=== PATIENT | female | born 1960 | race African-American/Black ===

== ENCOUNTER 2023-09-20 12:53 | Emergency (ER) | payer MEDICAID, OTHER ==
[~2023-09-20] VITALS: Ht 167.6 cm; Wt 90.0 kg
[2023-09-20 12:56] VITALS: O2SAT 95
[2023-09-20 14:05] LABS: EOSINOPHILS % 3.5 % (0.0-5.0); HEMATOCRIT. 38.3 % (36.0-48.0); HEMOGLOBIN. 12.2 g/dL (12.0-16.0); LYMPHOCYTES % 25.4 % (20.0-50.0); MEAN CORPUSCULAR HEMOGLOBIN 28.9 pg (28.0-32.0); MEAN CORPUSCULAR HGB CONC 31.8 g/dL (31.0-37.0); MEAN CORPUSCULAR VOLUME 90.7 fL (81.0-99.0); MEAN PLATELET VOLUME 9.1 fl (7.4-10.4); MONOCYTES % 12.5 % (2.0-8.0); NEUTROPHILS % 57.6 % (40.0-76.0); PLATELET 175 x1000/uL (130-400); RED BLOOD CELL COUNT 4.23 mill/uL (4.2-5.4); RED CELL DISTRIBUTION WIDTH 15.4 % (11.6-14.6); WHITE BLOOD COUNT 4.4 x1000/uL (4.5-11.0)
[2023-09-20 14:16] LABS: CARBON DIOXIDE 25 mEq/L (21-32); CHLORIDE 106 mEq/L (98-107); POTASSIUM 4.7 mEq/L (3.5-5.1); SODIUM 137 mEq/L (136-145)
[2023-09-20 14:17] LABS: CALCIUM 9.8 mg/dL (8.7-10.4)
[2023-09-20 14:21] LABS: CREATININE 0.8 mg/dL (0.6-1.0)
[2023-09-20 14:22] LABS: GLUCOSE 97 mg/dL (70-105); UREA NITROGEN BLOOD 13 mg/dL (9-23)
[2023-09-20 14:24] LABS: TROPONIN I HIGH SENSITIVITY 12 ng/L (3.0-34)
[2023-09-20 16:43] VITALS: BP 103/80; PULSE 88; RESP 19; TEMP 98.7
== END 2023-09-20 16:44 | disposition short-term general hospital (02) ==
LOC: ER 12:53 → CANBEDREQ 09-22 02:37
DX: I24.9 Acute ischemic heart disease, unspecified (principal); J44.9 Chronic obstructive pulmonary disease, unspecified; E78.00 Pure hypercholesterolemia, unspecified; F20.9 Schizophrenia, unspecified; F17.210 Nicotine dependence, cigarettes, uncomplicated
CPT/HCPCS: 80048; 83880; 85025; 84484; 36415; 71045; 93005; 99291; 99406; Z7610 ×2

== ENCOUNTER 2023-10-03 06:26 | Emergency (ER) | payer OTHER ==
[~2023-10-03] VITALS: Ht 165.1 cm; Wt 73.0 kg
[2023-10-03] MEDS ORDERED: LEVOFLOXACIN 750MG PREMIX 150 ML IV ONE (06:30)
[2023-10-03 06:56] LABS: BG CARBOXYHEMOGLOBIN 1.8 % (0.5-1.5); BG DEOXYHEMOGLOBIN 6.7 % (0.0-5.0); BG FRACTION INSPIRED OXYGEN 21; BG HCO3 ACT 24.1 mmol/L (22.0-26.0); BG METHEMOGLOBIN 0.1 % (0.0-1.5); BG OXYGEN SATURATION 93.2 % (92.0-98.5); BG OXYHEMOGLOBIN 91.4 % (94.0-97.0); BG PCO2 33.8 mmHg (35.0-45.0); BG PH 7.471 (7.350-7.450); BG PO2 67.1 mmHg (75.0-100.0); BG SAMPLE SITE LEFT RADIAL; BG TOTAL HEMOGLOBIN 13.2 g/dL (12.0-18.0); BG VENT MODE ROOM AIR
[2023-10-03] MEDS: ALBUTEROL (0.083%) 2.5MG/3ML NEB HHN STA (07:04)
[2023-10-03 07:05] VITALS: PULSE 92; RESP 18; O2SAT 96
[2023-10-03] MEDS: MAGNESIUM 2 G PREMIX 50 ML IV STA (07:05)
[2023-10-03] MEDS: METHYLPREDNISOLONE SOD SUCC 125MG/2ML (ACT-O-VIAL) IV STA (07:05)
[2023-10-03] MEDS: IPRATROPIUM BROMIDE (0.02%) 0.5MG/2.5ML NEB HHN STA (07:05)
[2023-10-03 07:07] LABS: BASOPHILS % 0.7 % (0.0-2.0); EOSINOPHILS % 7.2 % (0.0-5.0); HEMATOCRIT. 37.8 % (36.0-48.0); HEMOGLOBIN. 12.3 g/dL (12.0-16.0); LYMPHOCYTES % 23.3 % (20.0-50.0); MEAN CORPUSCULAR HEMOGLOBIN 29.5 pg (28.0-32.0); MEAN CORPUSCULAR HGB CONC 32.6 g/dL (31.0-37.0); MEAN CORPUSCULAR VOLUME 90.3 fL (81.0-99.0); MEAN PLATELET VOLUME 8.6 fl (7.4-10.4); MONOCYTES % 10.7 % (2.0-8.0); NEUTROPHILS % 58.1 % (40.0-76.0); PLATELET 168 x1000/uL (130-400); RED BLOOD CELL COUNT 4.19 mill/uL (4.2-5.4); RED CELL DISTRIBUTION WIDTH 16.2 % (11.6-14.6); WHITE BLOOD COUNT 5.6 x1000/uL (4.5-11.0)
[2023-10-03 07:18] LABS: CHLORIDE 101 mEq/L (98-107); POTASSIUM 3.8 mEq/L (3.5-5.1); SODIUM 138 mEq/L (136-145)
[2023-10-03 07:19] LABS: CARBON DIOXIDE 28 mEq/L (21-32)
[2023-10-03 07:20] LABS: CALCIUM 9.5 mg/dL (8.7-10.4)
[2023-10-03 07:24] LABS: CREATININE 0.9 mg/dL (0.6-1.0); GLUCOSE 102 mg/dL (70-105)
[2023-10-03 07:25] LABS: TROPONIN I HIGH SENSITIVITY 31 ng/L (3.0-34); UREA NITROGEN BLOOD 17 mg/dL (9-23)
[2023-10-03 09:32] VITALS: BP 135/80; PULSE 67; RESP 15; TEMP 98.7
== END 2023-10-03 09:39 | disposition short-term general hospital (02) ==
LOC: ER 06:26 → EDBEDREQ 07:50 → ER 09:39 → CANBEDREQ 10-05 21:59
DX: R06.02 Shortness of breath (principal); J44.9 Chronic obstructive pulmonary disease, unspecified; E78.00 Pure hypercholesterolemia, unspecified; F20.9 Schizophrenia, unspecified
CPT/HCPCS: 80048; 83880; 85025; 84484; 36415; 71045; 82805; 82375; 93005; 94644; 96374; 99285; 36600; J3475; J2919; Z7610; 94640

== ENCOUNTER 2023-10-11 21:56 | Emergency (ER) | payer OTHER ==
[~2023-10-11] VITALS: Ht 162.6 cm; Wt 91.0 kg
[2023-10-11 22:01] VITALS: BP 118/90; TEMP 98.4
[2023-10-11] MEDS: PREDNISONE 20MG TABLET PO STA (22:11)
[2023-10-11 22:25] VITALS: PULSE 88; RESP 20; O2SAT 95
[2023-10-11] MEDS: IPRATROPIUM BROMIDE (0.02%) 0.5MG/2.5ML NEB HHN STA (22:25)
[2023-10-11] MEDS: ALBUTEROL (0.083%) 2.5MG/3ML NEB HHN STA (22:25)
[2023-10-11] MEDS ORDERED: MENT5LOZ MM (22:50)
[2023-10-11] MEDS: BENZONATATE 100MG CAPSULE PO ONE (23:00)
== END 2023-10-11 23:37 | disposition home or self-care (01) ==
LOC: ER 22:07
DX: R05.9 Cough, unspecified (principal); J44.9 Chronic obstructive pulmonary disease, unspecified; E78.00 Pure hypercholesterolemia, unspecified
CPT/HCPCS: 71045; 94644; 99285; J7512; Z7610 ×3

== ENCOUNTER 2023-12-24 09:48 | Inpatient (IN) | payer MEDICAID, OTHER ==
[~2023-12-24] VITALS: Ht 167.6 cm; Wt 82.6 kg
[~2023-12-24 09:48] MED LIST: FURO-152 MT; MENT5LOZ MM; TRAZ-252 MT
[2023-12-24] MEDS: METHYLPREDNISOLONE SOD SUCC 125MG/2ML (ACT-O-VIAL) IV STA (10:16)
[2023-12-24] MEDS: FUROSEMIDE 40MG/4ML VIAL IVP ONE (10:17)
[2023-12-24] MEDS: MAGNESIUM 2 G PREMIX 50 ML IV ONE (10:22)
[2023-12-24 10:27] LABS: BASOPHILS % 0.8 % (0.0-2.0); EOSINOPHILS % 0.9 % (0.0-5.0); HEMATOCRIT. 38.5 % (36.0-48.0); HEMOGLOBIN. 12.1 g/dL (12.0-16.0); LYMPHOCYTES % 33.2 % (20.0-50.0); MEAN CORPUSCULAR HGB CONC 31.4 g/dL (31.0-37.0); MEAN CORPUSCULAR VOLUME 82.9 fL (81.0-99.0); MEAN PLATELET VOLUME 8.8 fl (7.4-10.4); MONOCYTES % 13.9 % (2.0-8.0); NEUTROPHILS % 51.2 % (40.0-76.0); PLATELET 210 x1000/uL (130-400); RED BLOOD CELL COUNT 4.64 mill/uL (4.2-5.4); RED CELL DISTRIBUTION WIDTH 18.5 % (11.6-14.6); WHITE BLOOD COUNT 5.3 x1000/uL (4.5-11.0)
[2023-12-24 10:40] VITALS: PULSE 120; RESP 25; O2SAT 90
[2023-12-24] MEDS: IPRATROPIUM BROMIDE (0.02%) 0.5MG/2.5ML NEB HHN STA (10:43)
[2023-12-24] MEDS: ALBUTEROL (0.083%) 2.5MG/3ML NEB HHN SCH (10:43)
[2023-12-24 11:13] LABS: CARBON DIOXIDE 19 mEq/L (21-32); CHLORIDE 104 mEq/L (98-107); POTASSIUM 3.3 mEq/L (3.5-5.1); SODIUM 138 mEq/L (136-145)
[2023-12-24 11:14] LABS: CALCIUM 9.1 mg/dL (8.7-10.4)
[2023-12-24 11:19] LABS: GLUCOSE 112 mg/dL (70-105); UREA NITROGEN BLOOD 12 mg/dL (9-23)
[2023-12-24 11:20] LABS: TROPONIN I HIGH SENSITIVITY 17 ng/L (3.0-34)
[2023-12-24] MEDS: POTASSIUM CHLORIDE 20MEQ/PACKET PO ONE (11:50)
[2023-12-25] VITALS (8 sets, daily range): BP systolic 105–118; BP diastolic 72–88; PULSE 53–115; RESP 18–25; TEMP 35.78064–36.6696; O2SAT 94–100
[2023-12-25] MEDS: FUROSEMIDE 20MG TABLET PO SCH (08:38)
[2023-12-25] MEDS ORDERED: DIPHENHYDRAMINE 50MG/ML VIAL IV PRN (09:15)
[2023-12-25] MEDS ORDERED: ACETAMINOPHEN 325MG TABLET PO PRN (09:15)
[2023-12-25] MEDS ORDERED: ONDANSETRON HCL 4MG/2ML INJ IV PRN (09:15)
[2023-12-25] MEDS ORDERED: CLONIDINE 0.1MG TABLET PO PRN (09:15)
[2023-12-25] MEDS ORDERED: AZITHROMYCIN 500 MG in DEXT 5% WATER 250 ML IV SCH (09:15)
[2023-12-25] MEDS: METHYLPREDNISOLONE SOD SUCC 40MG/ML (ACT-O-VIAL) IV SCH (10:48)
[2023-12-25] MEDS: CEFTRIAXONE 1GM/50ML 50 ML IV SCH (10:48)
[2023-12-25] MEDS: IPRATROPIUM/ALBUTEROL 0.5-3(2.5)MG/3ML NEB HHN PRN (13:21)
[2023-12-25] MEDS: ENOXAPARIN 40MG/0.4ML SYR SUBCUT SCH (15:00)
[2023-12-25] MEDS: IPRATROPIUM/ALBUTEROL 0.5-3(2.5)MG/3ML NEB HHN SCH (18:35)
[2023-12-26] VITALS (7 sets, daily range): BP systolic 90–111; BP diastolic 56–85; PULSE 79–106; RESP 18–22; TEMP 35.72508–37.2252; O2SAT 88–100
[2023-12-26 16:20] LABS: HEMATOCRIT. 38.4 % (36.0-48.0); HEMOGLOBIN. 11.9 g/dL (12.0-16.0); MEAN CORPUSCULAR HEMOGLOBIN 25.8 pg (28.0-32.0); MEAN CORPUSCULAR HGB CONC 31.1 g/dL (31.0-37.0); MEAN PLATELET VOLUME 9.5 fl (7.4-10.4); PLATELET 189 x1000/uL (130-400); RED BLOOD CELL COUNT 4.62 mill/uL (4.2-5.4); RED CELL DISTRIBUTION WIDTH 18.7 % (11.6-14.6); WHITE BLOOD COUNT 6.4 x1000/uL (4.5-11.0)
[2023-12-26 16:21] LABS: DIFFERENTIAL COMMENT 1
[2023-12-26 16:24] LABS: CHLORIDE 102 mEq/L (98-107); POTASSIUM 4.9 mEq/L (3.5-5.1); SODIUM 137 mEq/L (136-145)
[2023-12-26 16:25] LABS: CARBON DIOXIDE 23 mEq/L (21-32)
[2023-12-26 16:26] LABS: CALCIUM 10.2 mg/dL (8.7-10.4)
[2023-12-26 16:30] LABS: GLUCOSE 108 mg/dL (70-105); UREA NITROGEN BLOOD 26 mg/dL (9-23)
[2023-12-26 16:54] LABS: HYPOCHROMASIA 1+; NUCLEATED RED BLOOD CELLS 2 /100 WBC; PLATELET ESTIMATE NORMAL; TARGET CELLS 1+
[2023-12-26] MEDS: METHYLPREDNISOLONE SOD SUCC 40MG/ML (ACT-O-VIAL) IV SCH (21:00)
[2023-12-27] VITALS (9 sets, daily range): BP systolic 100–123; BP diastolic 62–83; PULSE 80–113; RESP 18–24; TEMP 35.94732–36.6696; O2SAT 94–98
[2023-12-27 07:22] LABS: CARBON DIOXIDE 24 mEq/L (21-32); CHLORIDE 104 mEq/L (98-107); POTASSIUM 4.6 mEq/L (3.5-5.1); SODIUM 138 mEq/L (136-145)
[2023-12-27 07:23] LABS: CALCIUM 10.1 mg/dL (8.7-10.4)
[2023-12-27 07:28] LABS: CREATININE 0.9 mg/dL (0.6-1.0); GLUCOSE 84 mg/dL (70-105); UREA NITROGEN BLOOD 29 mg/dL (9-23)
[2023-12-27 07:57] LABS: BASOPHILS % 0.1 % (0.0-2.0); HEMATOCRIT. 37.3 % (36.0-48.0); HEMOGLOBIN. 11.6 g/dL (12.0-16.0); LYMPHOCYTES % 15.6 % (20.0-50.0); MEAN CORPUSCULAR HEMOGLOBIN 25.8 pg (28.0-32.0); MEAN CORPUSCULAR HGB CONC 31.2 g/dL (31.0-37.0); MEAN CORPUSCULAR VOLUME 82.6 fL (81.0-99.0); MEAN PLATELET VOLUME 9.5 fl (7.4-10.4); MONOCYTES % 13.3 % (2.0-8.0); PLATELET 180 x1000/uL (130-400); RED BLOOD CELL COUNT 4.52 mill/uL (4.2-5.4); RED CELL DISTRIBUTION WIDTH 18.9 % (11.6-14.6); WHITE BLOOD COUNT 7.3 x1000/uL (4.5-11.0)
[2023-12-27] MEDS: GUAIFENESIN 200MG/10ML SUGAR FREE UDC PO PRN (13:56)
[2023-12-27] MEDS ORDERED: METHYLPREDNISOLONE 4MG TABLET PO SCH (21:00)
[2023-12-27] MEDS: PREDNISONE 10MG TABLET PO SCH (22:00)
[2023-12-28 02:30] VITALS: PULSE 99; RESP 18
[2023-12-28] MEDS: PREDNISONE 20MG TABLET PO SCH (06:44)
[2023-12-28 08:00] VITALS: BP 111/75; PULSE 95; RESP 18; TEMP 35.94732; O2SAT 96
[2023-12-28 08:42] VITALS: PULSE 96; RESP 18; O2SAT 98
[2023-12-28 12:00] VITALS: BP 101/61; PULSE 90; RESP 20; TEMP 36.05844; O2SAT 95
[2023-12-28 16:00] VITALS: BP 115/82; PULSE 71; RESP 20; TEMP 36.05844; O2SAT 100
[2023-12-28 20:00] VITALS: BP 114/86; PULSE 82; RESP 18; TEMP 36.00288; O2SAT 96
[2023-12-29] VITALS (7 sets, daily range): BP systolic 114–135; BP diastolic 67–89; PULSE 66–101; RESP 18–24; TEMP 35.89176–37.00296; O2SAT 98–100
[2023-12-29] MEDS: PREDNISONE 20MG TABLET PO NR (22:46)
[2023-12-29] MEDS ORDERED: HYDROCODONE/ACETAMINOPHEN 5/325MG TABLET PO PRN (23:45)
[2023-12-29] MEDS ORDERED: NALOXONE HCL 0.4MG/ML VIAL IV PRN (23:45)
[2023-12-30] VITALS (7 sets, daily range): BP systolic 96–117; BP diastolic 74–90; PULSE 65–113; RESP 16–20; TEMP 36.114–36.55848; O2SAT 96–100
[2023-12-30] MEDS: PREDNISONE 20MG TABLET PO SCH ×2 (06:00→16:57)
[2023-12-30 09:24] LABS: BG BASE EXCESS -5.1 mmol/L (-2.0-3.0); BG CARBOXYHEMOGLOBIN 1.2 % (0.5-1.5); BG DEOXYHEMOGLOBIN 6.1 % (0.0-5.0); BG FRACTION INSPIRED OXYGEN 21; BG HCO3 ACT 17.9 mmol/L (21.0-28.0); BG METHEMOGLOBIN 0.1 % (0.5-1.5); BG OXYGEN SATURATION 93.8 % (94.0-98.0); BG OXYHEMOGLOBIN 92.6 % (94.0-98.0); BG PCO2 27.9 mmHg (32.0-45.0); BG PH 7.425 (7.350-7.450); BG PO2 73.7 mmHg (83.0-108.0); BG SAMPLE SITE RIGHT BRACHIAL; BG TOTAL HEMOGLOBIN 13.1 g/dL (12.0-16.0); BG VENT MODE ROOM AIR
[2023-12-31] VITALS: BP 109/83; PULSE 67; RESP 16; TEMP 36.114; O2SAT 100
[2023-12-31 02:08] VITALS: PULSE 78; RESP 20; O2SAT 96
[2023-12-31 04:00] VITALS: BP 115/89; PULSE 67; RESP 18; TEMP 36.114; O2SAT 98
[2023-12-31 08:00] VITALS: BP 126/81; PULSE 65; RESP 18; TEMP 35.2806; O2SAT 100
[2023-12-31 16:00] VITALS: BP 116/89; PULSE 64; RESP 18; TEMP 35.72508; O2SAT 96
[2023-12-31] MEDS: LORAZEPAM 0.5MG TABLET PO PRN (17:48)
[2023-12-31 20:00] VITALS: BP 115/86; PULSE 98; RESP 18; TEMP 35.66952; O2SAT 97
[2024-01-01] VITALS: BP 116/81; PULSE 104; RESP 19; TEMP 35.94732; O2SAT 97
[2024-01-01] MEDS ORDERED: DIPHENHYDRAMINE 25MG CAPSULE PO PRN (08:45)
[2024-01-01] MEDS ORDERED: FAMO20TA8 MT (10:01)
[2024-01-01] MEDS ORDERED: PRED10TA MT (10:01)
[2024-01-01 12:00] VITALS: BP 111/77; PULSE 84; RESP 18; TEMP 36.50292; O2SAT 97
[2024-01-01 16:00] VITALS: BP 117/87; PULSE 79; RESP 18; TEMP 36.61404; O2SAT 100
[2024-01-01 20:00] VITALS: BP 115/66; PULSE 82; RESP 19; TEMP 36.33624; O2SAT 99
[2024-01-02] VITALS: BP 115/85; PULSE 61; RESP 18; TEMP 36.55848; O2SAT 98
[2024-01-02 02:28] VITALS: BP 115/61; PULSE 61; TEMP 97.8
== END 2024-01-02 02:05 | disposition left against medical advice (07) | DRG 140 ==
LOC: ER 09:48 → 5WST 11:30 → EDBEDREQ 11:36 → EDBEDREQTM 11:36 → EDBEDREQSVC 15:43 → 8WST 12-25 00:58
PROVIDERS: ADMIT Internal Medicine; ATTEND Internal Medicine
PROC: 5A09357 Assistance with Respiratory Ventilation, Less than 24 Consecutive Hours, Continuous Positive Airway Pressure (ICD-10-PCS; principal; 2023-12-24)
PROC: 5A0935A Assistance with Respiratory Ventilation, Less than 24 Consecutive Hours, High Flow/Velocity Cannula (ICD-10-PCS; 2023-12-24)
DX: J44.0 Chronic obstructive pulmonary disease with (acute) lower respiratory infection (principal); J96.01 Acute respiratory failure with hypoxia; I11.0 Hypertensive heart disease with heart failure; J18.9 Pneumonia, unspecified organism; I50.9 Heart failure, unspecified; J44.1 Chronic obstructive pulmonary disease with (acute) exacerbation; J96.02 Acute respiratory failure with hypercapnia; E78.5 Hyperlipidemia, unspecified; E87.6 Hypokalemia; Z53.29 Procedure and treatment not carried out because of patient's decision for other reasons
CPT/HCPCS: 36415; 36600; 71045; 76604; 80048; 82375; 82805; 84145; 84484; 85025; 93005; 93880; 94640; 99291; J0696; J1650; J1940; J2919; J2920; J3475; J7512; Q0163

== ENCOUNTER 2024-01-08 05:52 | Emergency (ER) | payer MEDICAID, OTHER ==
[~2024-01-08] VITALS: Ht 165.1 cm; Wt 73.0 kg
[~2024-01-08 05:52] MED LIST changes: +FAMO20TA8 MT; +PRED10TA MT
[2024-01-08 05:54] VITALS: TEMP 98.8; O2SAT 100
[2024-01-08 08:00] VITALS: O2SAT 90
[2024-01-08 08:13] VITALS: BP 112/91; PULSE 108; RESP 18
[2024-01-08] MEDS: MORPHINE SULFATE 4 MG/ML INJ (FOR IV/IM USE) IV ONE (08:13)
[2024-01-08] MEDS: ONDANSETRON HCL 4MG/2ML INJ IV ONE (08:13)
[2024-01-08] MEDS: ASPIRIN 325MG EC TABLET PO ONE (08:14)
[2024-01-08 09:16] LABS: BASOPHILS % 0.3 % (0.0-2.0); EOSINOPHILS % 0.7 % (0.0-5.0); HEMATOCRIT. 38.9 % (36.0-48.0); HEMOGLOBIN. 12.1 g/dL (12.0-16.0); LYMPHOCYTES % 11.1 % (20.0-50.0); MEAN CORPUSCULAR HEMOGLOBIN 25.1 pg (28.0-32.0); MEAN CORPUSCULAR HGB CONC 31.1 g/dL (31.0-37.0); MEAN CORPUSCULAR VOLUME 80.7 fL (81.0-99.0); MONOCYTES % 8.4 % (2.0-8.0); NEUTROPHILS % 79.5 % (40.0-76.0); PLATELET 88 x1000/uL (130-400); RED BLOOD CELL COUNT 4.82 mill/uL (4.2-5.4); RED CELL DISTRIBUTION WIDTH 20.3 % (11.6-14.6); WHITE BLOOD COUNT 9.6 x1000/uL (4.5-11.0)
[2024-01-08 09:23] LABS: CHLORIDE 99 mEq/L (98-107); POTASSIUM 4.3 mEq/L (3.5-5.1); SODIUM 132 mEq/L (136-145)
[2024-01-08 09:24] LABS: CALCIUM 8.8 mg/dL (8.7-10.4); CARBON DIOXIDE 29 mEq/L (21-32)
[2024-01-08 09:29] LABS: CREATININE 0.9 mg/dL (0.6-1.0); GLUCOSE 110 mg/dL (70-105); UREA NITROGEN BLOOD 14 mg/dL (9-23)
[2024-01-08 09:32] LABS: TROPONIN I HIGH SENSITIVITY 24 ng/L (3.0-34)
== END 2024-01-08 13:24 | disposition short-term general hospital (02) ==
LOC: ER 06:06
DX: I50.9 Heart failure, unspecified (principal); E78.00 Pure hypercholesterolemia, unspecified; J44.9 Chronic obstructive pulmonary disease, unspecified; Z79.899 Other long term (current) drug therapy
CPT/HCPCS: 80048; 83880; 85025; 84484; 36415; 71045; 93005; 96374; 96375; 99285; J2405; J2270; Z7610

== ENCOUNTER 2024-01-26 11:38 | Inpatient (IN) | payer MEDICAID ==
[~2024-01-26] VITALS: Ht 162.6 cm; Wt 100.7 kg
[2024-01-26 11:40] VITALS: O2SAT 100
[2024-01-26] MEDS: METHYLPREDNISOLONE SOD SUCC 125MG/2ML (ACT-O-VIAL) IV STA (12:39)
[2024-01-26 12:43] LABS: HEMOGLOBIN. 11.5 g/dL (12.0-16.0); MEAN CORPUSCULAR HEMOGLOBIN 25.4 pg (28.0-32.0); MEAN CORPUSCULAR HGB CONC 31.9 g/dL (31.0-37.0); MEAN CORPUSCULAR VOLUME 79.5 fL (81.0-99.0); PLATELET 318 x1000/uL (130-400); RED BLOOD CELL COUNT 4.52 mill/uL (4.2-5.4); RED CELL DISTRIBUTION WIDTH 21.5 % (11.6-14.6)
[2024-01-26 12:45] LABS: DIFFERENTIAL COMMENT 1
[2024-01-26] MEDS: LEVOFLOXACIN 750MG PREMIX 150 ML IV ONE (12:45)
[2024-01-26] MEDS: DIPHENHYDRAMINE 50MG/ML VIAL IV ONE (12:45)
[2024-01-26] MEDS ORDERED: PERMETHRIN 5% CREAM 60GM TOP ONE (12:45)
[2024-01-26 12:51] LABS: CHLORIDE 97 mEq/L (98-107); POTASSIUM 3.1 mEq/L (3.5-5.1); SODIUM 133 mEq/L (136-145)
[2024-01-26 12:52] LABS: CALCIUM 8.8 mg/dL (8.7-10.4); CARBON DIOXIDE 30 mEq/L (21-32)
[2024-01-26 12:57] LABS: CREATININE 0.9 mg/dL (0.6-1.0); GLUCOSE 69 mg/dL (70-105); UREA NITROGEN BLOOD 12 mg/dL (9-23)
[2024-01-26 12:58] LABS: D-DIMER 3.11 mg/L FEU (<0.50); INR 1.4; PROTHROMBIN TIME 14.9 sec (9.6-11.0); TROPONIN I HIGH SENSITIVITY 15 ng/L (3.0-34)
[2024-01-26] MEDS: POTASSIUM CHLORIDE 20MEQ TABLET SR PO NR (13:00)
[2024-01-26 13:35] VITALS: PULSE 100; RESP 22
[2024-01-26] MEDS: ALBUTEROL (0.083%) 2.5MG/3ML NEB HHN STA (13:35)
[2024-01-26] MEDS: IPRATROPIUM BROMIDE (0.02%) 0.5MG/2.5ML NEB HHN STA (13:35)
[2024-01-26] MEDS ORDERED: HYDROCODONE/ACETAMINOPHEN 10/325MG TABLET PO ONE (13:45)
[2024-01-26] MEDS ORDERED: PREDNISONE 20MG TABLET PO ONE (13:45)
[2024-01-26] MEDS ORDERED: MORPHINE SULFATE 4 MG/ML INJ (FOR IV/IM USE) IV ONE (13:45)
[2024-01-26 14:15] LABS: ANISOCYTOSIS 3+; MICROCYTOSIS 1+; NUCLEATED RED BLOOD CELLS 1 /100 WBC; OVALOCYTES 1+; PLATELET ESTIMATE NORMAL; TARGET CELLS 1+
[2024-01-26] MEDS ORDERED: FUROSEMIDE 40MG/4ML VIAL IVP NR (15:00)
[2024-01-26] MEDS ORDERED: KCL 20MEQ/100ML PREMIX 100 ML IV NR (15:00)
[2024-01-26] MEDS ORDERED: DOXYCYCLINE 100MG/100ML 100 ML IV SCH (15:15)
[2024-01-26 15:23] LABS: TROPONIN I HIGH SENSITIVITY 15 ng/L (3.0-34)
[2024-01-26] MEDS ORDERED: IOHEXOL-350 100 ML BOTTLE ONE (19:37)
[2024-01-26 20:00] VITALS: BP 118/68; PULSE 75; RESP 16; TEMP 36.50292
[2024-01-26] MEDS: HYDROCODONE/ACETAMINOPHEN 10/325MG TABLET PO NR (20:29)
[2024-01-26] MEDS: ENOXAPARIN 100MG/ML SYR SUBCUT NR (20:30)
[2024-01-26 22:33] VITALS: BP 116/91; PULSE 107; RESP 18; TEMP 36.55848; O2SAT 98
[2024-01-27] VITALS: BP 105/64; PULSE 74; RESP 18; TEMP 36.78072; TEMP 36.8072; O2SAT 97
[2024-01-27] MEDS ORDERED: NALOXONE HCL 0.4MG/ML VIAL IV PRN (00:15)
[2024-01-27 03:05] LABS: TROPONIN I HIGH SENSITIVITY 9 ng/L (3.0-34)
[2024-01-27 04:00] VITALS: BP 118/68; PULSE 76; RESP 19; TEMP 36.89184; O2SAT 98
[2024-01-27 08:16] VITALS: BP 116/86; PULSE 107; RESP 20; TEMP 36.28068; O2SAT 98
[2024-01-27] MEDS: ENOXAPARIN 100MG/ML SYR SUBCUT SCH (08:57)
[2024-01-27] MEDS ORDERED: ENOXAPARIN 100MG/ML SYR SUBCUT SCH (09:00)
[2024-01-27 10:28] LABS: BASOPHILS % 0.2 % (0.0-2.0); DIFFERENTIAL COMMENT 0; HEMATOCRIT. 34.1 % (36.0-48.0); LYMPHOCYTES % 11.8 % (20.0-50.0); MEAN CORPUSCULAR HEMOGLOBIN 25.7 pg (28.0-32.0); MEAN CORPUSCULAR HGB CONC 32.4 g/dL (31.0-37.0); MEAN CORPUSCULAR VOLUME 79.5 fL (81.0-99.0); MEAN PLATELET VOLUME 8.5 fl (7.4-10.4); MONOCYTES % 6.2 % (2.0-8.0); NEUTROPHILS % 81.8 % (40.0-76.0); PLATELET 332 x1000/uL (130-400); RED BLOOD CELL COUNT 4.29 mill/uL (4.2-5.4); RED CELL DISTRIBUTION WIDTH 21.7 % (11.6-14.6)
[2024-01-27] MEDS: HYDROCODONE/ACETAMINOPHEN 5/325MG TABLET PO PRN ×2 (11:44→20:27)
[2024-01-27 11:49] VITALS: BP 102/84; PULSE 120; RESP 20; TEMP 36.50292; O2SAT 98
[2024-01-27 12:46] LABS: CHLORIDE 101 mEq/L (98-107); POTASSIUM 4.4 mEq/L (3.5-5.1); SODIUM 133 mEq/L (136-145)
[2024-01-27 12:50] LABS: CALCIUM 9.2 mg/dL (8.7-10.4); CARBON DIOXIDE 25 mEq/L (21-32)
[2024-01-27 12:53] LABS: TROPONIN I HIGH SENSITIVITY 8 ng/L (3.0-34)
[2024-01-27 12:54] LABS: UREA NITROGEN BLOOD 17 mg/dL (9-23)
[2024-01-27 12:55] LABS: ALANINE AMINOTRANSFERASE 19 IU/L (10-49); GLUCOSE 172 mg/dL (70-105); TRIGLYCERIDE 98 mg/dL (0-150)
[2024-01-27 12:56] LABS: ALBUMIN 3.1 g/dL (3.2-4.8); LDL CHOLESTEROL 58 mg/dL (5-100)
[2024-01-27 12:57] LABS: ASPARTATE AMINOTRANSFERASE 24 IU/L (<34); BILIRUBIN TOTAL 1.4 mg/dL (0.1-1.0); CHOLESTEROL 91 mg/dL (<200); HDL CHOLESTEROL 28 mg/dL (>65); PROTEIN TOTAL 6.2 g/dL (6.0-8.3)
[2024-01-27] MEDS: HYDROXYZINE 25MG TABLET PO PRN (14:26)
[2024-01-27 16:04] VITALS: BP 94/62; PULSE 100; RESP 20; TEMP 36.6696; O2SAT 98
[2024-01-27] MEDS ORDERED: KETOROLAC 15MG/ML VIAL IV PRN (19:30)
[2024-01-27 20:00] VITALS: BP 96/61; PULSE 106; RESP 18; TEMP 36.3918; O2SAT 100
[2024-01-28] VITALS: BP 93/64; PULSE 89; RESP 18; TEMP 36.50292; O2SAT 98
[2024-01-28 04:00] VITALS: BP 110/81; PULSE 61; PULSE 66; RESP 18; TEMP 36.28068; O2SAT 100
[2024-01-28 08:00] VITALS: BP 128/86; PULSE 80; RESP 20; TEMP 36.33624; O2SAT 98
[2024-01-28] MEDS ORDERED: IPRATROPIUM/ALBUTEROL 0.5-3(2.5)MG/3ML NEB HHN PRN (13:45)
[2024-01-28 16:00] VITALS: BP 104/76; PULSE 82; RESP 20; TEMP 36.6696; O2SAT 96
[2024-01-28 18:36] LABS: *AMPHETAMINES SCREEN URINE NEGATIVE (NEGATIVE); *BARBITURATES SCREEN URINE NEGATIVE (NEGATIVE); *BENZODIAZEPINES SCREEN URINE NEGATIVE (NEGATIVE); *COCAINE SCREEN URINE NEGATIVE (NEGATIVE); CANNABINOID URINE SCREEN NEGATIVE (NEGATIVE); ECSTASY MDMA SCREEN URINE NEGATIVE (NEGATIVE); METHADONE URINE SCREEN NEGATIVE (NEGATIVE); OPIATES URINE SCREEN PRESUMPTIVE POSITIVE (NEGATIVE); PHENCYCLIDINE URINE SCREEN NEGATIVE (NEGATIVE)
[2024-01-28 20:00] VITALS: BP 116/85; PULSE 119; RESP 20; TEMP 35.89176; O2SAT 96
[2024-01-29] VITALS: BP 99/71; PULSE 84; RESP 20; TEMP 36.61404; O2SAT 97
[2024-01-29 08:00] VITALS: BP 111/80; PULSE 95; RESP 18; TEMP 36.44736; O2SAT 96
[2024-01-29] MEDS ORDERED: APIX5TAB MT (11:17)
== END 2024-01-29 15:17 | disposition home or self-care (01) | DRG 134 ==
LOC: ER 11:42 → 5WST 14:03 → EDBEDREQTM 14:35 → EDBEDREQ 14:35 → 7WST 21:14
PROVIDERS: ADMIT Internal Medicine; ATTEND Internal Medicine
DX: I26.99 Other pulmonary embolism without acute cor pulmonale (principal); J96.01 Acute respiratory failure with hypoxia; J44.9 Chronic obstructive pulmonary disease, unspecified; Z20.822 Contact with and (suspected) exposure to COVID-19; I10 Essential (primary) hypertension; E66.9 Obesity, unspecified; Z68.38 Body mass index [BMI] 38.0-38.9, adult
CPT/HCPCS: 36415; 71045; 71275; 76604; 80048; 80053; 80061; 80305; 83735; 83880; 84484; 85025; 85379; 87426; 87804; 93005; 94640; 99291; J1200; J1650; J1956; J2919; J3480; J3490; Q9967

== ENCOUNTER 2024-09-12 13:38 | Inpatient (IN) | payer MEDICAID ==
[~2024-09-12] VITALS: Ht 167.6 cm; Wt 88.9 kg
[~2024-09-12 13:38] MED LIST changes: +APIX5TAB MT; -FURO-152 MT; +FURO40TA5 PO; +IPRA3AMP9 NEB; +LOSA25TA26 PO; +METH-774 PO; +NEBI5TAB9 PO; -PRED10TA MT; +SPIR25TA PO
[2024-09-12] MEDS: HYDROCODONE/ACETAMINOPHEN 10/325MG TABLET PO ONE (14:39)
[2024-09-12 17:51] VITALS: PULSE 105; RESP 20; O2SAT 100
[2024-09-12] MEDS: ALBUTEROL (0.083%) 2.5MG/3ML NEB HHN SCH (17:51)
[2024-09-12] MEDS: IPRATROPIUM BROMIDE (0.02%) 0.5MG/2.5ML NEB HHN STA (17:51)
[2024-09-12 18:16] LABS: BASOPHILS % 0.5 % (0.0-2.0); DIFFERENTIAL COMMENT 0; EOSINOPHILS % 0.6 % (0.0-5.0); HEMATOCRIT. 32.9 % (36.0-48.0); LYMPHOCYTES % 12.1 % (20.0-50.0); MEAN CORPUSCULAR HEMOGLOBIN 22.1 pg (28.0-32.0); MEAN CORPUSCULAR HGB CONC 30.3 g/dL (31.0-37.0); MEAN PLATELET VOLUME 8.8 fl (7.4-10.4); MONOCYTES % 13.6 % (2.0-8.0); NEUTROPHILS % 73.2 % (40.0-76.0); PLATELET 148 x1000/uL (130-400); RED CELL DISTRIBUTION WIDTH 19.2 % (11.6-14.6); WHITE BLOOD COUNT 6.5 x1000/uL (4.5-11.0)
[2024-09-12 18:25] LABS: CHLORIDE 97 mEq/L (98-107); POTASSIUM 4.2 mEq/L (3.5-5.1); SODIUM 133 mEq/L (136-145)
[2024-09-12 18:26] LABS: CALCIUM 9.3 mg/dL (8.7-10.4); CARBON DIOXIDE 26 mEq/L (21-32)
[2024-09-12 18:31] LABS: GLUCOSE 115 mg/dL (70-105); UREA NITROGEN BLOOD 21 mg/dL (9-23)
[2024-09-12 18:32] LABS: TROPONIN I HIGH SENSITIVITY 19 ng/L (3.0-34)
[2024-09-12 18:33] LABS: INR 1.4; PARTIAL THROMBOPLASTIN TIME 30.8 sec (23.4-31.0)
[2024-09-12 18:37] LABS: LACTIC ACID 3.9 mmol/L (0.4-2.0)
[2024-09-12 18:49] LABS: BG BASE EXCESS 2.4 mmol/L (-2.0-3.0); BG CARBOXYHEMOGLOBIN 2.8 % (0.5-1.5); BG DEOXYHEMOGLOBIN 0.2 % (0.0-5.0); BG FRACTION INSPIRED OXYGEN 60; BG HCO3 ACT 27.7 mmol/L (21.0-28.0); BG METHEMOGLOBIN 0.3 % (0.5-1.5); BG OXYGEN SATURATION 99.8 % (94.0-98.0); BG OXYHEMOGLOBIN 96.7 % (94.0-98.0); BG PH 7.398 (7.350-7.450); BG PO2 188.6 mmHg (83.0-108.0); BG SAMPLE SITE RIGHT RADIAL; BG VENT MODE HHN
[2024-09-12] MEDS: METHYLPREDNISOLONE SOD SUCC 125MG/2ML (ACT-O-VIAL) IV STA (19:12)
[2024-09-12] MEDS: PIPERACILLIN/TAZO 3.375G/50ML 50 ML IV STA (19:12)
[2024-09-12] MEDS: SODIUM CHLORIDE 0.9% 1,000 ML IV ONE (19:12)
[2024-09-12] MEDS: KETOROLAC 15MG/ML VIAL IV ONE (20:06)
[2024-09-12] MEDS: VANCOMYCIN 1.75GM PMX (XELLIA) 350 ML IV SCH (21:44)
[2024-09-12] MEDS: FUROSEMIDE 40MG/4ML VIAL IVP ONE (21:45)
[2024-09-12 23:28] VITALS: BP 125/86; PULSE 99; RESP 18; TEMP 36.4
[2024-09-13] MEDS ORDERED: ACETAMINOPHEN 325MG TABLET PO PRN
[2024-09-13] MEDS: IPRATROPIUM/ALBUTEROL 0.5-3(2.5)MG/3ML NEB HHN SCH (00:56)
[2024-09-13 00:58] VITALS: PULSE 102; RESP 18; O2SAT 99
[2024-09-13 03:47] VITALS: PULSE 100; RESP 18; O2SAT 98
[2024-09-13] MEDS: PIPERACILLIN/TAZO 3.375G/50ML 50 ML IV SCH (05:34)
[2024-09-13 08:00] VITALS: BP 114/72; PULSE 89; RESP 15; TEMP 36.7; O2SAT 95
[2024-09-13] MEDS: NEBIVOLOL HCL 5 MG TABLET PO SCH (09:44)
[2024-09-13 09:50] VITALS: PULSE 98; RESP 15; O2SAT 95
[2024-09-13] MEDS ORDERED: VANCOMYCIN 750MG PREMIX 150 ML IV SCH (10:00)
[2024-09-13 12:00] VITALS: BP 113/69; PULSE 91; RESP 17; TEMP 37.1; O2SAT 99
[2024-09-13] MEDS ORDERED: NEBIVOLOL HCL 5 MG TABLET PO SCH (21:00)
[2024-09-13] MEDS ORDERED: METHOCARBAMOL 750MG TABLET PO SCH (21:00)
[2024-09-13] MEDS ORDERED: VANCOMYCIN 1.25GM/250ML 250 ML IV SCH (21:00)
[2024-09-13] MEDS ORDERED: FAMOTIDINE 20MG TABLET PO SCH (21:00)
[2024-09-13] MEDS ORDERED: APIXABAN 5 MG TABLET PO SCH (21:00)
[2024-09-14] MEDS ORDERED: FUROSEMIDE 40MG TABLET PO SCH (09:00)
[2024-09-14] MEDS ORDERED: SPIRONOLACTONE 25MG TABLET PO SCH (09:00)
[2024-09-14] MEDS ORDERED: LOSARTAN 25 MG TABLET PO SCH (09:00)
== END 2024-09-13 12:20 | disposition left against medical advice (07) | DRG 720 ==
LOC: EDBD → ER 13:38 → EDBEDREQ 17:36 → ENRESERV 21:25 → 6WST 21:49
PROVIDERS: ADMIT Internal Medicine; ATTEND Internal Medicine
DX: A41.9 Sepsis, unspecified organism (principal); G93.40 Encephalopathy, unspecified; I50.23 Acute on chronic systolic (congestive) heart failure; E87.20 Acidosis, unspecified; E87.1 Hypo-osmolality and hyponatremia; I11.0 Hypertensive heart disease with heart failure; L97.519 Non-pressure chronic ulcer of other part of right foot with unspecified severity; Z53.29 Procedure and treatment not carried out because of patient's decision for other reasons; J44.9 Chronic obstructive pulmonary disease, unspecified; L03.031 Cellulitis of right toe; Z87.891 Personal history of nicotine dependence
CPT/HCPCS: 36415; 36600; 71045; 73630; 80048; 82375; 82805; 82962; 83605; 83880; 84484; 85025; 87070; 87077; 87186; 93005; 94070; 94640; 94664; 99285; J1885; J1940; J2543; J2919; J3370; J7030